=== PATIENT | male | born 1945 | race Caucasian/White ===

== ENCOUNTER 2020-02-29 12:04 | Inpatient (IN) ==
[2020-02-29 14:15] LABS: Basophils % 0.5 % (0.0-0.8); Eosinophils # 0.1 10*3/uL (0.0-0.87); Eosinophils % 1.1 % (0.00-10.9); Hematocrit 32.4 VOL% (42.0-52.0); Hemoglobin 10.4 GM/DL (14.0-18.0); Immature Granulocytes % 0.3 %; Immature Granulocytes Absolute 0.03 #; Lymphocytes # 0.6 10*3/uL (1.4-4.0); Lymphocytes % 6.2 % (21.2-54.2); Mean Corpuscular HGB Conc 32.1 GM/DL (32-36); Mean Corpuscular Volume 98.5 FL (87-102); Mean Platelet Volume 12.3 FL (9.6-12.0); Monocytes % 10.9 % (1.7-12.7); Platelet Count 104 T/CUMM (130-400); Red Blood Count 3.29 MC/CUMM (3.8-5.5); Red Cell Distribution Width 12.5 % (9.3-17.3); White Blood Count 8.9 T/CUMM (4-12)
[2020-02-29 14:23] LABS: INR 2.6
[2020-02-29 14:26] LABS: PT Patient Result 26.1 SECS (9.8-11.9)
[2020-02-29 14:41] LABS: Albumin 3.5 G/DL (3.4-5.0); Bilirubin,Total 0.7 MG/DL (0.2-1.0); Calcium 8.7 MG/DL (8.5-10.1); Total Protein 7.2 G/DL (6.4-8.3)
[2020-02-29 14:55] LABS: Lymphocytes 8 % (20-55); Platelet Estimate Adequate; Segmented Neutrophils 82 % (50-85); Total Cells Counted 100
[2020-02-29] MEDS ORDERED: GLUCAGON 1 MG VIAL IM PRN (17:22)
[2020-02-29] MEDS ORDERED: ONDANSETRON 4 MG/2 ML VIAL IV PRN (17:22)
[2020-02-29] MEDS ORDERED: DEXTROSE 10% 250 ML BAG IV PRN (17:22)
[2020-02-29] MEDS ORDERED: ACETAMINOPHEN 325 MG TABLET PO PRN (17:22)
[2020-02-29] MEDS ORDERED: CETIRIZINE 10 MG TABLET PO PRN (17:28)
[2020-02-29] MEDS: FERROUS SULFATE 325 MG TABLET PO SCH (23:25)
[2020-02-29] MEDS: ATORVASTATIN 20 MG TABLET PO SCH (23:25)
[2020-03-01] MEDS: DOCUSATE SODIUM 100 MG CAPSULE PO SCH ×3 (00:27→21:38)
[2020-03-01 06:09] LABS: Basophils % 0.5 % (0.0-0.8); Eosinophils # 0.1 10*3/uL (0.0-0.87); Hematocrit 29.5 VOL% (42.0-52.0); Hemoglobin 9.4 GM/DL (14.0-18.0); Immature Granulocytes % 0.5 %; Immature Granulocytes Absolute 0.03 #; Lymphocytes # 0.7 10*3/uL (1.4-4.0); Lymphocytes % 10.2 % (21.2-54.2); Mean Corpuscular HGB Conc 31.9 GM/DL (32-36); Mean Corpuscular Volume 98.3 FL (87-102); Mean Platelet Volume 12.4 FL (9.6-12.0); Monocytes % 14.2 % (1.7-12.7); Neutrophils % 72.6 % (38.7-73.9); Platelet Count 101 T/CUMM (130-400); Red Cell Distribution Width 12.6 % (9.3-17.3); White Blood Count 6.6 T/CUMM (4-12)
[2020-03-01 06:32] LABS: Albumin 3.3 G/DL (3.4-5.0); Bilirubin,Total 1.5 MG/DL (0.2-1.0); Calcium 8.5 MG/DL (8.5-10.1); Osmolality,Calculated 274.2 MOS/KG (273-304); Total Protein 6.9 G/DL (6.4-8.3)
[2020-03-01 06:33] LABS: % Iron Saturation 17.4 % (18-50); Ferritin 123.2 ng/ml (26-388)
[2020-03-01 07:21] LABS: Folate 18.9 NG/ML (5.4-24.0)
[2020-03-01] MEDS: LEVOTHYROXINE 88 MCG TABLET PO SCH (07:56)
[2020-03-01] MEDS: CHOLECALCIFEROL 400 UNIT TABLET PO SCH (10:15)
[2020-03-01] MEDS: METOPROLOL SUCCINATE XL 25 MG TABLET PO SCH (10:15)
[2020-03-01] MEDS: PANTOPRAZOLE 40 MG TABLET PO SCH (10:15)
[2020-03-01] MEDS: FERROUS SULFATE 325 MG TABLET PO SCH ×2 (10:15→21:38)
[2020-03-01] MEDS: MAGNESIUM OXIDE 400 MG TABLET PO SCH (10:15)
[2020-03-01] MEDS ORDERED: SODIUM CHLORIDE 0.9% 1,000 ML IV PRN (11:40)
[2020-03-01] MEDS ORDERED: PHYTONADIONE 10 MG/1 ML AMP SUBCUT ONE (11:41)
[2020-03-01] MEDS: DIGOXIN 0.125 MG TABLET PO SCH (13:59)
[2020-03-01 14:55] LABS: Apearance,Urine CLEAR (Clear); Bilirubin,Urine Negative (Negative); Blood, Urine Negative (Negative); Glucose,Urine (UA) Negative (Negative); Hyaline Casts,Urine 1 /LPF (0-3); Ketones,Urine Negative (Negative); Nitrite,Urine Negative (Negative); Protein,Urine Negative; RBC,Urine <1 /HPF (0-4); Squamous Epithelial Cell,Urine Occasional /HPF (0-10); Urine Color Yellow (Yellow); Urine Specific Gravity 1.014 (1.001-1.035); Urine Urobilinogen < 2.0 EU/DL (0.2-1.0); WBC,Urine 1 /HPF (0-6)
[2020-03-01] MEDS: ATORVASTATIN 20 MG TABLET PO SCH (21:38)
[2020-03-02 05:39] LABS: Basophils % 0.4 % (0.0-0.8); Eosinophils # 0.1 10*3/uL (0.0-0.87); Eosinophils % 1.3 % (0.00-10.9); Hemoglobin 8.5 GM/DL (14.0-18.0); Immature Granulocytes % 0.6 %; Immature Granulocytes Absolute 0.04 #; Lymphocytes # 0.5 10*3/uL (1.4-4.0); Lymphocytes % 7.4 % (21.2-54.2); Mean Corpuscular HGB Conc 32.7 GM/DL (32-36); Mean Corpuscular Volume 97.4 FL (87-102); Monocytes % 13.6 % (1.7-12.7); Neutrophils % 76.7 % (38.7-73.9); Platelet Count 90 T/CUMM (130-400); Red Blood Count 2.67 MC/CUMM (3.8-5.5); Red Cell Distribution Width 12.4 % (9.3-17.3); White Blood Count 6.8 T/CUMM (4-12)
[2020-03-02 05:51] LABS: INR 1.3; PT Patient Result 13.3 SECS (9.8-11.9)
[2020-03-02 06:04] LABS: Bilirubin,Total 1.3 MG/DL (0.2-1.0); Calcium 8.3 MG/DL (8.5-10.1); Calcium 8.4 MG/DL (8.5-10.1); Osmolality,Calculated 272.4 MOS/KG (273-304); Total Protein 6.5 G/DL (6.4-8.3)
[2020-03-02 06:13] LABS: Hypochromasia 1+; Microcytosis 1+
[2020-03-02 06:14] LABS: Platelet Estimate Decreased
[2020-03-02] MEDS: LEVOTHYROXINE 88 MCG TABLET PO SCH (06:39)
[2020-03-02] MEDS: MAGNESIUM OXIDE 400 MG TABLET PO SCH (09:22)
[2020-03-02] MEDS: CHOLECALCIFEROL 400 UNIT TABLET PO SCH (09:22)
[2020-03-02] MEDS: FERROUS SULFATE 325 MG TABLET PO SCH ×2 (09:22→21:17)
[2020-03-02] MEDS: PANTOPRAZOLE 40 MG TABLET PO SCH (09:22)
[2020-03-02] MEDS: DOCUSATE SODIUM 100 MG CAPSULE PO SCH ×2 (09:22→21:17)
[2020-03-02] MEDS: METOPROLOL SUCCINATE XL 25 MG TABLET PO SCH (09:23)
[2020-03-02] MEDS: DIGOXIN 0.125 MG TABLET PO SCH (12:35)
[2020-03-02 18:01] LABS: Basophils # 0.1 10*3/uL (0.0-0.2); Basophils % 0.6 % (0.0-0.8); Eosinophils # 0.1 10*3/uL (0.0-0.87); Eosinophils % 1.4 % (0.00-10.9); Hematocrit 29.1 VOL% (42.0-52.0); Immature Granulocytes % 0.5 %; Immature Granulocytes Absolute 0.04 #; Lymphocytes # 0.7 10*3/uL (1.4-4.0); Lymphocytes % 8.2 % (21.2-54.2); Mean Corpuscular HGB Conc 30.9 GM/DL (32-36); Mean Corpuscular Volume 102.1 FL (87-102); Mean Platelet Volume 12.6 FL (9.6-12.0); Monocytes % 12.3 % (1.7-12.7); Platelet Count 111 T/CUMM (130-400); Red Blood Count 2.85 MC/CUMM (3.8-5.5); Red Cell Distribution Width 12.4 % (9.3-17.3); White Blood Count 8.3 T/CUMM (4-12)
[2020-03-02] MEDS: ATORVASTATIN 20 MG TABLET PO SCH (21:17)
[2020-03-03 05:39] LABS: Basophils # 0.1 10*3/uL (0.0-0.2); Basophils % 0.7 % (0.0-0.8); Eosinophils # 0.2 10*3/uL (0.0-0.87); Eosinophils % 2.3 % (0.00-10.9); Hemoglobin 8.9 GM/DL (14.0-18.0); Immature Granulocytes % 0.5 %; Immature Granulocytes Absolute 0.04 #; Lymphocytes # 0.6 10*3/uL (1.4-4.0); Lymphocytes % 8.3 % (21.2-54.2); Mean Corpuscular HGB Conc 31.8 GM/DL (32-36); Mean Corpuscular Volume 98.6 FL (87-102); Mean Platelet Volume 11.9 FL (9.6-12.0); Monocytes % 11.4 % (1.7-12.7); Neutrophils % 76.8 % (38.7-73.9); Platelet Count 115 T/CUMM (130-400); Red Blood Count 2.84 MC/CUMM (3.8-5.5); Red Cell Distribution Width 12.6 % (9.3-17.3); White Blood Count 7.3 T/CUMM (4-12)
[2020-03-03 06:00] LABS: Albumin 3.2 G/DL (3.4-5.0); Bilirubin,Total 1.9 MG/DL (0.2-1.0); Calcium 8.9 MG/DL (8.5-10.1); Total Protein 6.9 G/DL (6.4-8.3)
[2020-03-03] MEDS: DOCUSATE SODIUM 100 MG CAPSULE PO SCH (09:14)
[2020-03-03] MEDS: PANTOPRAZOLE 40 MG TABLET PO SCH (09:14)
[2020-03-03] MEDS: METOPROLOL SUCCINATE XL 25 MG TABLET PO SCH (09:14)
[2020-03-03] MEDS: LEVOTHYROXINE 88 MCG TABLET PO SCH (09:14)
[2020-03-03] MEDS: FERROUS SULFATE 325 MG TABLET PO SCH (09:14)
[2020-03-03] MEDS: CHOLECALCIFEROL 400 UNIT TABLET PO SCH (09:14)
[2020-03-03] MEDS: MAGNESIUM OXIDE 400 MG TABLET PO SCH (09:16)
[2020-03-03 12:17] VITALS: BP 112/61
== END 2020-03-03 12:10 | disposition home or self-care (01) | DRG 813 ==
LOC: SUATTDRO → N.ED 12:04 → SUATTDRO 17:21 → N.EDINP 17:21 → N.3E 20:01
PROVIDERS: ADMIT Emergency Medicine; ATTEND Internal Medicine